=== PATIENT | male | born 1975 | race Caucasian/White ===

== ENCOUNTER → 2017-07-06 | Outpatient (CLI) | payer BC | END | disposition home or self-care (01) | LOC: MAMMO 16:28 | PROVIDERS: ATTEND Emergency Medicine | DX: Z12.31 Encounter for screening mammogram for malignant neoplasm of breast (principal) | CPT/HCPCS: 77063; G0202 ==

== ENCOUNTER → 2017-09-30 | Outpatient (CLI) | payer BC ==
--- NOTE | 2017-09-30 11:52 | US ---
EXAM DESCRIPTION: Breast,Right: Ultrasound CLINICAL HISTORY: 42 yearsFemalePAIN IN RIGHT BREAST. Patient feels lump at the lateral right breast COMPARISON: Digital 3-D tomosynthesis screening bilateral mammography 07/06/2017. TECHNIQUE: Transcutaneous scanning of the lateral right breast utilizing two-dimensional and Doppler modes. Scanning performed by the sample clerk only. FINDINGS: Scanning in the region of the 900 clock position of the right breast where patient complains of pain in previous lump. Heterogeneous fatty and fibroglandular tissues. No discrete solid mass or cyst. No skin thickening or calcifications. No parenchymal edema. IMPRESSION: BI-RADS CATEGORY: 2 - BENIGN FINDINGS. FOLLOW UP: Return to routine digital bilateral screening, one year interval from June 2017. The FINDINGS and the follow-up plan were reviewed in person with the patient after the examination. Written communication explaining the IMPRESSION and follow-up will be mailed to the patient and referring care provider. According to the [employer], yearly mammograms are recommended starting at age 40 and continuing as long as a woman is in good health. Any breast change noted on a breast self-exam should be reported promptly to the patient's healthcare provider. Breast MRI is recommended for women with an approximately 20-25% or greater lifetime risk of breast cancer, including women with a strong family history of breast or ovarian cancer and women who have been treated for Hodgkin's disease. A negative mammographic report should not delay tissue diagnosis in patients with significant clinical history or physical findings. Extremely dense breast tissue limits the sensitivity of digital mammography. The FINDINGS and the follow-up plan were reviewed in person with the patient after the examination. Written communication explaining the IMPRESSION and follow-up will be mailed to the patient and referring care provider. Electronically signed by: Patric Domínguez MD 09/30/2017 11:51 AM BOTTLE GAUGER
== END | disposition home or self-care (01) ==
LOC: US 09:04
PROVIDERS: ATTEND Nurse Practitioner Family
DX: N64.4 Mastodynia (principal)

== ENCOUNTER → 2018-03-17 | Outpatient (CLI) | payer BC ==
--- NOTE | 2018-03-17 12:32 | MAM ---
EXAM DESCRIPTION: 3D Diagnostic, Right: Digital Mammography CLINICAL HISTORY: 42 yearsFemalePAIN IN RIGHT BREAST . Patient states she feels lump in lateral right breast.. COMPARISON: Bilateral 3-D screening examination June 2017.. Ultrasound right breast September 2017. Reports from prior examinations also reviewed. TECHNIQUE: Right breast CC LM MLO projection full-field images, 3-D tomosynthesis digital mammographic technique. Also right breast synthesized CC MLO LM full-field images. CAD not utilized. FINDINGS: The breast parenchymal density pattern is: Scattered areas of fibroglandular density. No skin thickening or nipple retraction No focal, stellate mass or density, focal asymmetry , and no suspicious microcalcifications right breast. Stable mammograms compared to prior study, taking into account differences in mammographic technique ULTRASOUND: Scanning 1000 clock position 8 cm from the nipple right breast. Heterogeneous fibroglandular and fatty tissues. No distinct solid mass or cyst. No parenchymal edema or large calcifications. No overlying skin changes. Doppler vascularity unremarkable. IMPRESSION: BIRAD CATEGORY: 2 BENIGN FOLLOW UP: Routine digital bilateral screening, one year interval from June 2017. The findings and follow-up plan were discussed in person with the patient. Written communication explaining the IMPRESSION and follow-up, will be mailed to the patient and referring health care provider. According to the [employer], yearly mammograms are recommended starting at age 40 and continuing as long as a woman is in good health. Any breast change noted on a breast self-exam should be reported promptly to the patient's healthcare provider. Breast MRI is recommended for women with an approximately 20-25% or greater lifetime risk of breast cancer, including women with a strong family history of breast or ovarian cancer and women who have been treated for Hodgkin's disease. A negative mammographic report should not delay tissue diagnosis in patients with significant clinical history or physical findings. Extremely dense breast tissue limits the sensitivity of digital mammography. Electronically signed by: Patric Domínguez MD 03/17/2018 12:30 PM CDT
--- NOTE | 2018-03-17 12:33 | US ---
EXAM DESCRIPTION: Breast,Right: Ultrasound CLINICAL HISTORY: 42 yearsFemaleBREAST LUMP COMPARISON: Digital 3-D tomosynthesis diagnostic right breast on this visit. Targeted right breast ultrasound 09/30/2017. TECHNIQUE: Transcutaneous scanning of the lateral right breast utilizing two-dimensional and Doppler modes. Scanning performed by the aerodynamic consultant and Dr. Domínguez. FINDINGS: Scanning 1000 clock position 8 cm from the nipple right breast. Heterogeneous fibroglandular and fatty tissues. No distinct solid mass or cyst. No parenchymal edema or large calcifications. No overlying skin changes. Doppler vascularity unremarkable. IMPRESSION: BI-RAD Category 2-benign. The FINDINGS and the FOLLOW-UP plan were reviewed in person with the patient after the examination. Written communication explaining the IMPRESSION and FOLLOW-UP will be mailed to the patient and referring care provider. Electronically signed by: Patric Domínguez MD 03/17/2018 12:32 PM CDT
== END ==
LOC: MAMMO 09:10
PROVIDERS: ATTEND Emergency Medicine
DX: N64.4 Mastodynia (principal)
CPT/HCPCS: 76641; 77065; G0279